=== PATIENT | male | born 1965 | race Two or more races ===

== ENCOUNTER 2020-11-06 12:21 | Emergency (ER) | payer OTHER ==
[~2020-11-06] VITALS: Ht 177.8 cm; Wt 82.0 kg
[2020-11-06 15:47] LABS: CHLORIDE 115 mEq/L (98-107)
[2020-11-06 15:49] LABS: ETHANOL BLOOD 271 mg/dL
[2020-11-06] MEDS ORDERED: MAGNESIUM/ALUMINUM HYDROXIDE/SIMETHICONE 30ML UDC PO STA (16:41)
[2020-11-06] MEDS ORDERED: CHLORDIAZEPOXIDE 25MG CAPSULE PO ONE (16:45)
[2020-11-06 16:53] LABS: BASOPHILS % 0.1 % (0.0-2.0); EOSINOPHILS % 2.3 % (0.0-5.0); HEMATOCRIT. 39.6 % (42.0-52.0); HEMOGLOBIN. 12.8 g/dL (14.0-18.0); LYMPHOCYTES % 39.6 % (20.0-50.0); MEAN CORPUSCULAR HEMOGLOBIN 32.2 pg (28.0-32.0); MEAN CORPUSCULAR VOLUME 99.4 fL (80.0-94.0); MEAN PLATELET VOLUME 6.9 fl (7.4-10.4); MONOCYTES % 13.2 % (2.0-8.0); NEUTROPHILS % 44.8 % (40.0-76.0); PLATELET 273 x1000/uL (130-400); RED BLOOD CELL COUNT 3.98 mill/uL (4.7-6.1)
[2020-11-06] MEDS ORDERED: CHLORDIAZEPOXIDE 5 MG CAPSULE PO NR (17:00)
[2020-11-06 20:26] VITALS: BP 121/84
== END 2020-11-06 20:26 | disposition home or self-care (01) ==
LOC: EDBD → ER 12:21
DX: T51.0X1A Toxic effect of ethanol, accidental (unintentional), initial encounter (principal); S09.90XA Unspecified injury of head, initial encounter; I10 Essential (primary) hypertension; W18.39XA Other fall on same level, initial encounter; Y93.89 Activity, other specified; Y92.89 Other specified places as the place of occurrence of the external cause; Y99.8 Other external cause status
CPT/HCPCS: 36415; 70450; 71045; 72125; 80048; 80076; 80320; 83690; 84484; 85025; 93005; 99285; Z7610; G0480

== ENCOUNTER 2020-11-06 21:32 | Emergency (ER) | payer OTHER ==
[~2020-11-06] VITALS: Ht 170.2 cm; Wt 82.0 kg
[2020-11-06 21:37] VITALS: BP 124/87
== END 2020-11-07 01:25 | disposition left against medical advice (07) ==
LOC: EDBD 21:32 → ER 21:32
DX: Z53.21 Procedure and treatment not carried out due to patient leaving prior to being seen by health care provider (principal); I45.2 Bifascicular block
CPT/HCPCS: 93005